=== PATIENT | female | born 1995 | race Caucasian/White ===

== ENCOUNTER → 2019-05-21 22:20 | Observation (INO) ==
[2019-05-21 20:25] LABS: Bilirubin,Urine Negative (Negative); Blood,Urine Moderate (Negative); Clarity,Urine Clear (Clear); Color,Urine Yellow (Yellow); Glucose,Urine (UA) Normal (Normal); Ketones,Urine Negative (Negative); Leukocyte Esterase,Urine Moderate (Negative); Nitrite,Urine Negative (Negative); PH,Urine 6.5 pH Units (5.0-8.0); Protein,Urine 100 mg/dL (Neg-Trace); Specific Gravity,Urine 1.027 (1.010-1.025); Urobilinogen,Urine Normal (Normal)
[2019-05-21 20:27] LABS: RBC,Urine TNTC per hpf (0-3)
[2019-05-21 20:28] LABS: WBC,Urine 15-30 per hpf (0-3)
[2019-05-21 21:08] LABS: Amphetamine Screen,Urine Negative ng/mL (Cutoff=1000); Barbiturate Screen,Urine Negative ng/mL (Cutoff=200); Benzodiazepines Screen,Urine Negative ng/mL (Cutoff=200); Cannabinoid Screen,Urine Negative ng/mL (Cutoff = 50); Cocaine Screen,Urine Negative ng/mL (Cutoff= 300); Opiate Screen,Urine Negative ng/mL (Cutoff=300); Phencyclidine Screen,Urine Negative ng/mL (Cutoff=25)
[~2019-05-21 22:20] MED LIST: CefTRIAXone 1,000 MG VIAL IM ONE; Lidocaine -MPF 1% 5 ML AMPUL ID ONE
== END | disposition home or self-care (01) ==
LOC: 1NENULAB
PROVIDERS: ADMIT Advanced Practice Midwife; ATTEND Advanced Practice Midwife

== ENCOUNTER 2019-08-03 17:46 | Inpatient (IN) ==
[2019-08-03] MEDS: Ringers Solution, Lactated 1,000 ML IVC SCH ×2 (13:45→18:44)
[2019-08-03 14:17] LABS: Basophils % 0.2 %; Eosinophils # 0.1 K/mcL (0.0-0.6); Hematocrit 35.5 % (35.3-44.9); Hemoglobin 11.6 g/dL (11.5-15.4); Immature Granulocytes % 0.6 % (0-4); Lymphocytes # 2.4 K/mcL (0.6-4.6); Lymphocytes % 19.1 %; Mean Corpuscular HGB Conc 32.7 g/dL (31.6-35.5); Mean Corpuscular Hemoglobin 28.7 pg (28.0-33.3); Mean Corpuscular Volume 87.9 fL (83.0-100.0); Mean Platelet Volume 12.1 fL (9.4-12.4); Monocytes # 0.7 K/mcL (0.0-1.3); Monocytes % 5.2 %; Neutrophils # 9.1 K/mcL (1.6-8.9); Platelet Count 340 K/mcL (140-400); Red Blood Count 4.04 M/mcL (3.82-4.97); Red Cell Distribution Width 14.5 % (11.5-14.5); Segmented Neutrophils % 73.9 %; White Blood Count 12.4 K/mcL (4.3-11.1)
[2019-08-03 15:22] LABS: Amphetamine Screen,Urine Negative ng/mL (Cutoff=1000); Barbiturate Screen,Urine Negative ng/mL (Cutoff=200); Benzodiazepines Screen,Urine Negative ng/mL (Cutoff=200); Cannabinoid Screen,Urine Negative ng/mL (Cutoff = 50); Cocaine Screen,Urine Negative ng/mL (Cutoff= 300); Opiate Screen,Urine Negative ng/mL (Cutoff=300); Phencyclidine Screen,Urine Negative ng/mL (Cutoff=25)
[~2019-08-03 17:46] MED LIST changes: +*HR* FentaNYL (PF) 100 MCG/2 ML VIAL ONE; +Azithromycin 500 MG in 0.9 % Sodium Chloride 250 ML IVPB ONE; -CefTRIAXone 1,000 MG VIAL IM ONE; +EPHEDrine 50 MG/ML VIAL IVP PRN; +Epidural Premix (fent/bupiv) 110 ML EP ONE; +Epidural Premix (fent/bupiv) 110 ML EP SCH; +FLU Vac QV 19-20 (6Month+)/PF 0.5 ML SYRINGE IM ONE; +Famotidine 20 MG/2 ML VIAL IVP PRN; -Lidocaine -MPF 1% 5 ML AMPUL ID ONE; +Lidocaine 1% 20 ML MDV INFILT PRN; +Methylergonovine 0.2 MG/ML AMPUL IM ONE; +Metoclopramide 10 MG/2 ML VIAL IVP PRN; +Naloxone 0.4 MG/ML INJ IVP PRN; +Ondansetron 4 MG/2 ML VIAL IVP PRN; +Oxytocin 20 units/ LR 1000 mL 20 UNIT/1,000 ML BAG IVC SCH; +Ringers Solution, Lactated 1,000 ML ONE; +Ropivacaine/PF 0.2% 20 ML VIAL ONE
[2019-08-03] MEDS ORDERED: Measles/Mumps/Rubella Vacc 0.5 ML VIAL SQ PRN (22:19)
[2019-08-03] MEDS ORDERED: Rho Immune Globulin 1,500 UNIT SYRINGE IM PRN (22:19)
[2019-08-03] MEDS ORDERED: Oxytocin 20 units/ LR 1000 mL 20 UNIT/1,000 ML BAG IVC SCH (22:19)
[2019-08-04] MEDS: Ibuprofen 600 MG TABLET PO PRN ×4 (00:19→20:54)
[2019-08-04 04:49] LABS: Basophils % 0.1 %; Eosinophils % 0.3 %; Hematocrit 29.5 % (35.3-44.9); Immature Granulocytes % 0.5 % (0-4); Lymphocytes # 2.2 K/mcL (0.6-4.6); Lymphocytes % 14.7 %; Mean Corpuscular HGB Conc 32.9 g/dL (31.6-35.5); Mean Corpuscular Hemoglobin 29.2 pg (28.0-33.3); Mean Corpuscular Volume 88.9 fL (83.0-100.0); Mean Platelet Volume 12.1 fL (9.4-12.4); Monocytes # 0.9 K/mcL (0.0-1.3); Monocytes % 6.1 %; Neutrophils # 11.8 K/mcL (1.6-8.9); Platelet Count 244 K/mcL (140-400); Red Blood Count 3.32 M/mcL (3.82-4.97); Red Cell Distribution Width 14.6 % (11.5-14.5); Segmented Neutrophils % 78.3 %
[2019-08-04 04:52] LABS: Hemoglobin 9.7 g/dL (11.5-15.4)
[2019-08-04] MEDS: Acetaminophen 325 MG TABLET PO PRN ×3 (07:30→22:01)
[2019-08-04] MEDS: Prenatal Vit/FA 1 EACH TABLET PO SCH (07:31)
[2019-08-04] MEDS ORDERED: Benzocaine/Menthol 56 GM AEROSOL SPRAY TP PRN (21:55)
[2019-08-05] MEDS: Ibuprofen 600 MG TABLET PO PRN (02:56)
[2019-08-05 07:44] VITALS: BP 119/75
[2019-08-05] MEDS: Prenatal Vit/FA 1 EACH TABLET PO SCH (08:55)
[2019-08-05] MEDS ORDERED: FLU Vac QV 19-20 (6Month+)/PF 0.5 ML SYRINGE IM ONE (14:19)
== END 2019-08-05 16:26 | disposition home or self-care (01) | DRG 560 ==
LOC: 1NENULAB → 1NENUOBS 23:33
PROVIDERS: ADMIT Registered Nurse; ATTEND Registered Nurse

== ENCOUNTER → 2020-12-26 21:14 | Observation (INO) ==
[~2020-12-26 21:14] MED LIST changes: -*HR* FentaNYL (PF) 100 MCG/2 ML VIAL ONE; -Azithromycin 500 MG in 0.9 % Sodium Chloride 250 ML IVPB ONE; -EPHEDrine 50 MG/ML VIAL IVP PRN; -Epidural Premix (fent/bupiv) 110 ML EP ONE; -Epidural Premix (fent/bupiv) 110 ML EP SCH; -FLU Vac QV 19-20 (6Month+)/PF 0.5 ML SYRINGE IM ONE; -Famotidine 20 MG/2 ML VIAL IVP PRN; -Lidocaine 1% 20 ML MDV INFILT PRN; -Methylergonovine 0.2 MG/ML AMPUL IM ONE; -Metoclopramide 10 MG/2 ML VIAL IVP PRN; -Naloxone 0.4 MG/ML INJ IVP PRN; -Ondansetron 4 MG/2 ML VIAL IVP PRN; -Oxytocin 20 units/ LR 1000 mL 20 UNIT/1,000 ML BAG IVC SCH; +Ringers Solution, Lactated 1,000 ML IVC ONE; -Ringers Solution, Lactated 1,000 ML ONE; -Ropivacaine/PF 0.2% 20 ML VIAL ONE
== END | disposition home or self-care (01) ==
LOC: 1NENULAB
PROVIDERS: ADMIT Registered Nurse; ATTEND Registered Nurse

== ENCOUNTER → 2021-01-10 00:18 | Observation (INO) ==
[2021-01-09 23:50] LABS: Bacteria,Urine Few per hpf (None-Few); Bilirubin,Urine Negative (Negative); Blood,Urine Negative (Negative); Calcium Oxalate Crystals,Urine Present per hpf; Clarity,Urine Turbid (Clear); Color,Urine Yellow (Yellow); Glucose,Urine (UA) 50 mg/dL (Normal); Hyaline Casts,Urine Few per lpf (None Seen); Ketones,Urine Trace mg/dL (Negative); Leukocyte Esterase,Urine Large (Negative); Mucus,Urine Few per lpf (None-Few); Nitrite,Urine Negative (Negative); PH,Urine 6.5 pH Units (5.0-8.0); Protein,Urine 50 mg/dL (Neg-Trace); RBC,Urine 15-30 per hpf (0-3); Specific Gravity,Urine 1.027 (1.010-1.025); Squamous Epithelial Cell,Urine Moderate per hpf (None-Few); WBC,Urine TNTC per hpf (0-3)
== END | disposition home or self-care (01) ==
LOC: 1NENULAB
PROVIDERS: ADMIT Advanced Practice Midwife; ATTEND Advanced Practice Midwife

== ENCOUNTER → 2021-01-23 22:20 | Observation (INO) ==
[2021-01-23 21:16] LABS: Basophils % 0.1 %; Eosinophils # 0.1 K/mcL (0.0-0.6); Eosinophils % 0.8 %; Hematocrit 33.5 % (35.3-44.9); Hemoglobin 10.6 g/dL (11.5-15.4); Immature Granulocytes % 0.6 % (0-4); Lymphocytes # 2.2 K/mcL (0.6-4.6); Lymphocytes % 15.5 %; Mean Corpuscular HGB Conc 31.6 g/dL (31.6-35.5); Mean Corpuscular Hemoglobin 25.7 pg (28.0-33.3); Mean Corpuscular Volume 81.3 fL (83.0-100.0); Mean Platelet Volume 11.2 fL (9.4-12.4); Monocytes # 0.7 K/mcL (0.0-1.3); Platelet Count 336 K/mcL (140-400); Red Blood Count 4.12 M/mcL (3.82-4.97); Red Cell Distribution Width 15.2 % (11.5-14.5); White Blood Count 14.1 K/mcL (4.3-11.1)
[2021-01-23 21:18] LABS: Protein/Creatinine Ratio,Urine 0.23 mg/mg (0.00-0.20)
[2021-01-23 21:29] LABS: Alanine Aminotransferase 8 Units/L (7-52); Aspartate Amino Transferase 11 Units/L (13-39); BUN/Creatinine Ratio 10 (6-26); Blood Urea Nitrogen 6 mg/dL (6-20); Lactate Dehydrogenase 129 Units/L (140-271); eGFR For African Americans > 60 (> 60); eGFR For Non-African Americans > 60 (> 60)
[2021-01-23 22:03] LABS: Trichomonas DNA DETECTED (Not Detect)
[2021-01-23 22:04] LABS: Candida DNA Not Detected (Not Detect); Gardnerella DNA Not Detected (Not Detect)
== END | disposition home or self-care (01) ==
LOC: 1NENULAB
PROVIDERS: ADMIT Student in an Organized Health Care Education/Training Program; ATTEND Student in an Organized Health Care Education/Training Program

== ENCOUNTER 2021-01-28 04:00 | Inpatient (IN) ==
[2021-01-28] MEDS ORDERED: Naloxone 0.4 MG/ML INJ IVP PRN (04:15)
[2021-01-28] MEDS ORDERED: Ringers Solution, Lactated 1,000 ML IVC SCH (04:15)
[2021-01-28] MEDS ORDERED: Famotidine 20 MG/2 ML VIAL IVP PRN (04:15)
[2021-01-28] MEDS ORDERED: Metoclopramide 10 MG/2 ML VIAL IVP PRN (04:15)
[2021-01-28 04:51] LABS: Amphetamine Screen,Urine Negative ng/mL (Cutoff=1000); Barbiturate Screen,Urine Negative ng/mL (Cutoff=200)
[2021-01-28 04:54] LABS: Benzodiazepines Screen,Urine Negative ng/mL (Cutoff=200)
[2021-01-28 05:09] LABS: Cannabinoid Screen,Urine Negative ng/mL (Cutoff = 50); Cocaine Screen,Urine Negative ng/mL (Cutoff= 300); Opiate Screen,Urine Negative ng/mL (Cutoff=300); Phencyclidine Screen,Urine Negative ng/mL (Cutoff=25)
[2021-01-28 05:45] LABS: Influenza A PCR Negative (Negative); Influenza B PCR Negative (Negative); Resp. Syncytial Virus PCR Negative (Negative)
[2021-01-28 05:45] LABS: Basophils % 0.2 %; Eosinophils # 0.1 K/mcL (0.0-0.6); Eosinophils % 0.7 %; Hematocrit 32.9 % (35.3-44.9); Hemoglobin 10.4 g/dL (11.5-15.4); Immature Granulocytes % 0.5 % (0-4); Lymphocytes % 22.3 %; Mean Corpuscular HGB Conc 31.6 g/dL (31.6-35.5); Mean Corpuscular Hemoglobin 25.8 pg (28.0-33.3); Mean Corpuscular Volume 81.6 fL (83.0-100.0); Mean Platelet Volume 11.8 fL (9.4-12.4); Monocytes # 0.8 K/mcL (0.0-1.3); Monocytes % 5.7 %; Neutrophils # 9.5 K/mcL (1.6-8.9); Platelet Count 332 K/mcL (140-400); Red Blood Count 4.03 M/mcL (3.82-4.97); Red Cell Distribution Width 15.1 % (11.5-14.5); Segmented Neutrophils % 70.6 %; White Blood Count 13.5 K/mcL (4.3-11.1)
[2021-01-28 05:46] LABS: SARS-CoV-2 by PCR (In House) Negative (Negative)
[2021-01-28] MEDS ORDERED: *HR* Nalbuphine 10 MG/ML AMPUL IV PRN (07:56)
[2021-01-28] MEDS ORDERED: Ropivacaine/PF 0.2% 20 ML VIAL EP ONE (08:19)
[2021-01-28] MEDS ORDERED: *HR* FentaNYL (PF) 100 MCG/2 ML VIAL EP ONE (08:19)
[2021-01-28] MEDS ORDERED: EPHEDrine 50 MG/ML VIAL IVP PRN (08:19)
[2021-01-28] MEDS ORDERED: Epidural Premix (fent/bupiv) 110 ML EP ONE (08:20)
[2021-01-28] MEDS ORDERED: Epidural Premix (fent/bupiv) 110 ML EP SCH (08:30)
[2021-01-28] MEDS ORDERED: miSOPROStoL 25 MCG TABLET PO ONE (10:00)
[2021-01-28] MEDS ORDERED: Measles/Mumps/Rubella Vacc 0.5 ML VIAL SQ PRN (16:06)
[2021-01-28] MEDS ORDERED: Rho Immune Globulin 1,500 UNIT SYRINGE IM PRN (16:06)
[2021-01-28] MEDS ORDERED: Oxytocin 20 units/ LR 1000 mL 20 UNIT/1,000 ML BAG IVC SCH (16:06)
[2021-01-28] MEDS ORDERED: Ondansetron ODT 4 MG TAB.RAPDIS SL PRN (16:06)
[2021-01-28] MEDS ORDERED: Benzocaine/Menthol 56 GM AEROSOL SPRAY TP PRN (16:06)
[2021-01-28] MEDS ORDERED: Oxytocin 20 units/ LR 1000 mL 20 UNIT/1,000 ML BAG IVC ONE (16:06)
[2021-01-28] MEDS ORDERED: Lanolin 7 G OINT...G. TP PRN (16:06)
[2021-01-28] MEDS: Ibuprofen 600 MG TABLET PO SCH ×2 (16:22→22:20)
[2021-01-28] MEDS: Acetaminophen 325 MG TABLET PO SCH ×2 (16:22→22:20)
[2021-01-28 20:16] VITALS: O2SAT 97
[2021-01-29 07:34] VITALS: BP 126/90; PULSE 100; TEMP 98.6
[2021-01-29 08:21] LABS: Basophils % 0.2 %; Eosinophils # 0.2 K/mcL (0.0-0.6); Eosinophils % 1.3 %; Hematocrit 28.1 % (35.3-44.9); Hemoglobin 8.8 g/dL (11.5-15.4); Immature Granulocytes % 0.6 % (0-4); Lymphocytes # 3.5 K/mcL (0.6-4.6); Mean Corpuscular HGB Conc 31.3 g/dL (31.6-35.5); Mean Corpuscular Hemoglobin 25.7 pg (28.0-33.3); Mean Corpuscular Volume 81.9 fL (83.0-100.0); Mean Platelet Volume 11.3 fL (9.4-12.4); Monocytes # 0.7 K/mcL (0.0-1.3); Neutrophils # 9.4 K/mcL (1.6-8.9); Platelet Count 264 K/mcL (140-400); Red Blood Count 3.43 M/mcL (3.82-4.97); Red Cell Distribution Width 15.7 % (11.5-14.5); Segmented Neutrophils % 67.9 %; White Blood Count 13.9 K/mcL (4.3-11.1)
[2021-01-29] MEDS: Ibuprofen 600 MG TABLET PO SCH ×2 (08:56→15:16)
[2021-01-29] MEDS: Acetaminophen 325 MG TABLET PO SCH ×2 (08:57→15:16)
[2021-01-29] MEDS ORDERED: Prenatal Vit/FA 1 EACH TABLET PO SCH (09:00)
== END 2021-01-29 22:00 | disposition home or self-care (01) | DRG 560 ==
LOC: 1NENULAB 04:03 → 1NENUOBS 15:48
PROVIDERS: ADMIT Obstetrics & Gynecology; ATTEND Obstetrics & Gynecology

== ENCOUNTER 2022-02-15 15:03 | Inpatient (IN) ==
[~2022-02-15 15:03] MED LIST changes: +*HR* Labetalol 20 MG/4 ML SYRINGE IVP PRN; +*HR* Nalbuphine 10 MG/ML AMPUL IV PRN; +Azithromycin 500 MG in 0.9 % Sodium Chloride 250 ML IVPB PRN; +Famotidine 20 MG/2 ML VIAL IVP PRN; +Lidocaine -MPF 1% 5 ML AMPUL INFILT PRN; +Metoclopramide 10 MG/2 ML VIAL IVP PRN; +Naloxone 0.4 MG/ML INJ IVP PRN; +Ondansetron 4 MG/2 ML VIAL IVP PRN; -Ringers Solution, Lactated 1,000 ML IVC ONE; +Ringers Solution, Lactated 1,000 ML IVC SCH; +Ringers Solution, Lactated 1,000 ML ONE
[2022-02-15 15:44] LABS: Basophils % 0.2 %; Eosinophils # 0.3 K/mcL (0.0-0.6); Eosinophils % 1.7 %; Hematocrit 30.9 % (35.3-44.9); Hemoglobin 9.6 g/dL (11.5-15.4); Immature Granulocytes % 1.3 % (0-4); Lymphocytes # 2.4 K/mcL (0.6-4.6); Lymphocytes % 16.8 %; Mean Corpuscular HGB Conc 31.1 g/dL (31.6-35.5); Mean Corpuscular Volume 73.9 fL (83.0-100.0); Mean Platelet Volume 11.4 fL (9.4-12.4); Monocytes # 0.8 K/mcL (0.0-1.3); Monocytes % 5.3 %; Neutrophils # 10.7 K/mcL (1.6-8.9); Platelet Count 392 K/mcL (140-400); Red Blood Count 4.18 M/mcL (3.82-4.97); Red Cell Distribution Width 17.6 % (11.5-14.5); Segmented Neutrophils % 74.7 %; White Blood Count 14.4 K/mcL (4.3-11.1)
[2022-02-15 16:02] LABS: Alanine Aminotransferase 6 Units/L (7-52); Aspartate Amino Transferase 9 Units/L (13-39); BUN/Creatinine Ratio 11 (6-26); Blood Urea Nitrogen 7 mg/dL (6-20); Lactate Dehydrogenase 140 Units/L (140-271); Uric Acid 3.9 mg/dL (2.3-7.6)
[2022-02-15] MEDS ORDERED: Oxytocin 30 UNIT/503 ML BAG IVC SCH (16:30)
[2022-02-15 17:00] LABS: Amphetamine Screen,Urine Negative ng/mL (Cutoff=1000); Barbiturate Screen,Urine Negative ng/mL (Cutoff=200); Benzodiazepines Screen,Urine Negative ng/mL (Cutoff=200); Cannabinoid Screen,Urine Negative ng/mL (Cutoff = 50); Cocaine Screen,Urine Negative ng/mL (Cutoff= 300); Creatinine,Urine 56 mg/dL; Opiate Screen,Urine Negative ng/mL (Cutoff=300); Phencyclidine Screen,Urine Negative ng/mL (Cutoff=25); Protein/Creatinine Ratio,Urine 0.18 mg/mg (0.00-0.20)
[2022-02-15] MEDS ORDERED: Epidural Premix (fent/bupiv) 110 ML EP ONE (21:27)
[2022-02-15] MEDS ORDERED: Ropivacaine/PF 0.2% 20 ML VIAL EP ONE (21:55)
[2022-02-15] MEDS ORDERED: EPHEDrine sulfate 50 MG/10 ML VIAL IVP PRN (21:55)
[2022-02-15] MEDS ORDERED: Naloxone 0.4 MG/ML INJ IVP PRN (21:55)
[2022-02-15] MEDS ORDERED: Ondansetron 4 MG/2 ML VIAL IVP PRN (21:55)
[2022-02-15] MEDS ORDERED: Epidural Premix (fent/bupiv) 110 ML EP SCH (22:00)
[2022-02-16] MEDS ORDERED: OXYTOCIN/RINGERS LACTATE 10 UNIT/166.6 ML BAG IVC ONE (02:51)
[2022-02-16] MEDS ORDERED: Benzocaine/Menthol 56 GM AEROSOL SPRAY TP PRN (02:51)
[2022-02-16] MEDS ORDERED: Lanolin 7 G OINT...G. TP PRN (02:51)
[2022-02-16] MEDS ORDERED: Oxytocin 30 UNIT/503 ML BAG IVC SCH (02:51)
[2022-02-16] MEDS ORDERED: Ondansetron ODT 4 MG TAB.RAPDIS SL PRN (02:51)
[2022-02-16] MEDS: Ibuprofen 600 MG TABLET PO SCH ×3 (04:46→19:47)
[2022-02-16] MEDS: Acetaminophen 325 MG TABLET PO SCH ×3 (04:46→19:47)
[2022-02-16 06:14] LABS: Basophils # 0.1 K/mcL (0.0-0.2); Basophils % 0.3 %; Eosinophils # 0.3 K/mcL (0.0-0.6); Eosinophils % 1.2 %; Hematocrit 31.8 % (35.3-44.9); Hemoglobin 9.9 g/dL (11.5-15.4); Immature Granulocytes % 0.8 % (0-4); Lymphocytes # 3.1 K/mcL (0.6-4.6); Lymphocytes % 13.1 %; Mean Corpuscular HGB Conc 31.1 g/dL (31.6-35.5); Mean Platelet Volume 11.3 fL (9.4-12.4); Monocytes # 1.2 K/mcL (0.0-1.3); Monocytes % 5.1 %; Neutrophils # 18.5 K/mcL (1.6-8.9); Platelet Count 357 K/mcL (140-400); Red Cell Distribution Width 18.1 % (11.5-14.5); Segmented Neutrophils % 79.5 %
[2022-02-16 06:15] LABS: White Blood Count 23.3 K/mcL (4.3-11.1)
[2022-02-16] MEDS: Prenatal Vit/FA 1 EACH TABLET PO SCH (08:55)
[2022-02-16 16:17] VITALS: O2SAT 98
[2022-02-17] MEDS: Acetaminophen 325 MG TABLET PO SCH ×3 (02:24→08:00)
[2022-02-17] MEDS: Ibuprofen 600 MG TABLET PO SCH ×4 (02:25→11:16)
[2022-02-17 07:00] VITALS: BP 129/96; PULSE 90; TEMP 98
[2022-02-17] MEDS: Prenatal Vit/FA 1 EACH TABLET PO SCH (08:01)
== END 2022-02-17 11:35 | disposition home or self-care (01) | DRG 560 ==
LOC: 1NENULAB → 1NENUOBS 02-16 02:49
PROVIDERS: ADMIT Advanced Practice Midwife; ATTEND Advanced Practice Midwife